=== PATIENT | female | born 1975 | race Caucasian/White ===

== ENCOUNTER 2018-01-23 13:22 | Emergency (ER) | payer OTHER ==
[2018-01-23 16:28] LABS: ABS Basophils 0 10^3/ul (0-0.2); ABS Eosinophils 0.2 10^3/ul (0-0.6); ABS Lymphocytes 1.4 10^3/ul (1.0-4.8); ABS Monocytes 0.5 10^3/ul (0-0.8); ABS Neutrophils 4.9 10^3/ul (1.5-7.7); ABS Nucleated RBC 0 10^3/ul; Eosinophil % 3.1 % (0-6); Hematocrit 38 % (35-47); Mean Corpuscular HGB Conc 34 g/dl (31-36); Mean Corpuscular Hemoglobin 29 pg (27-31); Mean Corpuscular Volume 86 fL (80-97); Mean Platelet Volume 7.9 um3 (7.4-10.4); Nucleated Red Blood Cells % 0; Platelet Count 161 10^3/ul (150-450); Red Blood Count 4.42 10^6/ul (4.00-5.40); Red Cell Distribution Width 14 % (10.5-15); White Blood Count 7.1 10^3/ul (3.5-10.8)
[2018-01-23 16:35] LABS: INR 1.03 (0.77-1.02)
[2018-01-23 16:44] LABS: EGFR Non-African American 73.7 (>60)
[2018-01-23 17:30] LABS: Urine Appearance Clear; Urine Blood Negative (Negative); Urine Color Yellow; Urine Ketones Negative (Negative); Urine Protein Negative (Negative); Urine Specific Gravity 1.014 (1.010-1.030); Urine Urobilinogen Negative (Negative)
[2018-01-23] MEDS ORDERED: Ketorolac INJ* 30 MG/ML 1 ML VIAL IV ONE (18:01)
[2018-01-23] MEDS ORDERED: NS 0.9% 1000 ML* 1,000 ML IV ONE (18:01)
--- NOTE | 2018-01-23 18:32 | RAD ---
INDICATION: Four-day history of vaginal bleeding and low back and abdominal pain. Hysterectomy 4 years ago. COMPARISON: No relevant prior exams available on the [facility] for comparison. TECHNIQUE: Multidetector CT images were obtained from the lung bases to the ischial tuberosities. Evaluation of the viscera is limited without IV contrast. Multiplanar reformation. REPORT: Unremarkable visualized inferior thorax. Unremarkable unenhanced liver, gallbladder, pancreas, and top normal 13 cm cephalocaudal spleen. Negative for CT abnormality of the upper GI or small bowel. Postsurgical change of appendectomy. A few colonic diverticula are noted. No evidence for acute diverticulitis. Physiologic range small volume of free fluid in the dependent pelvis. Negative for free air or hernias. Normal adrenal glands. 1 mm nonobstructing stone at the lower pole of the RIGHT kidney. Negative for hydronephrosis. Unremarkable nondilated ureters and partially distended urinary bladder. Pelvic phleboliths noted. Post hysterectomy. Small amount of gas noted in the vaginal cuff. Unremarkable adnexal regions. Negative for lymphadenopathy. Normal diameter abdominal aorta and iliac arteries. Physiologic distention of the IVC. Negative for suspicious osseous lesions. IMPRESSION: 1. Top normal size spleen. 2. Post appendectomy. A few colonic diverticula are noted. No evidence for acute diverticulitis. 3. 1 mm nonobstructing stone at the lower pole of the RIGHT kidney. Negative for hydronephrosis. 4. Post hysterectomy. No suspicious adnexal region lesions evident. Physiologic small volume of pelvic fluid.
--- NOTE | 2018-01-23 18:50 | ED ---
GI/ HPI - HPI Summary HPI Summary: Complains of either vaginal or urethral bleeding, right flank pain, X 4 days. Patient states bleeding is intermittent and involves bright red blood, both in bowl and on paper when wiping. Patient also states chronic lower back pain, chronic bilat lower abdominal pain, but lower abdominal pain is becoming worse in right lower quadrant x 4 days. History of recurrent UTIs, chronic urinary leakage since bladder mesh surgery 4 years ago. Patient has history of partial hysterectomy 4 years ago, appendectomy. Denies fever, cough, sore throat, CP, SOB, N/V/D, change in urine or BM. Medical history is hep C, asthma. - History of Current Complaint Chief Complaint: EDVaginalBleeding Time Seen by Provider: 01/23/18 16:51 Stated Complaint: VAGINAL BLEEDING Hx Obtained From: Patient Onset/Duration: Started Days Ago Timing: Intermittent Severity: Moderate Current Severity: Moderate Vaginal Bleeding Description: Bright Red Pain Intensity: 8 Location of Pain: RLQ, Flank Pain Characteristics: Cramping Pain Radiates to: Flank Associated Signs and Symptoms: Positive: Back Pain, Flank Pain, Abdominal Pain Additional Signs & Symptoms: Positive: Vaginal Bleeding Aggravating Factor(s): Movement - Allergy/Home Medications Allergies/Adverse Reactions: Allergies Allergy/AdvReac Type Severity Reaction Status Date / Time cefaclor [From Ceclor] Allergy Rash Verified 01/23/18 16:55 risperidone [From Risperdal] Allergy Anaphylatic Verified 01/23/18 16:55 Shock Sulfa (Sulfonamide Allergy Rash Verified 01/23/18 16:55 Antibiotics) tobramycin Allergy Bleeding Verified 01/23/18 16:55 Home Medications: Home Medications Albuterol HFA INHALER* [Ventolin HFA Inhaler*] 2 puff INH Q6H PRN 01/23/18 [ History Confirmed 01/23/18] Ibuprofen TAB* [Motrin TAB* 600 MG] 600 mg PO TID PRN 01/23/18 [History Confirmed 01/23/18] buPROPion TAB* [Wellbutrin TAB*] 150 mg PO QAM 01/23/18 [History Confirmed 01/23] hydrOXYzine HCL TAB* [Atarax TAB 50 MG *] 50 mg PO BID 01/23/18 [History Confirmed 01/23/18] PMH/Surg Hx/FS Hx/Imm Hx Endocrine/Hematology History: Denies: Hx Anticoagulant Therapy History: Denies: Hx Dialysis EENT History: Denies: Hx Deafness Neurological History: Denies: Hx CVA - Surgical History Surgery Procedure, Year, and Place: hysterectomy with bladder mesh Infectious Disease History: No Infectious Disease History: Denies: Traveled Outside the [place] in Last 30 Days - Social History Alcohol Use: None Substance Use Type: Reports: None Smoking Status (MU): Never Smoked Tobacco Review of Systems Constitutional: Negative Eyes: Negative ENT: Negative Cardiovascular: Negative Respiratory: Negative Positive: Abdominal Pain Positive: see HPI Musculoskeletal: Negative Skin: Negative Neurological: Negative Psychological: Normal All Other Systems Reviewed And Are Negative: Yes Physical Exam - Summary Physical Exam Summary: Abdomen diffusely tender, worse in bilateral lower abdomen and suprapubic area. Positive CVA tenderness right side. No bleeding noted on pelvic exam. Triage Information Reviewed: Yes Vital Signs On Initial Exam: Initial Vitals Temp Pulse Resp BP Pulse Ox 97.8 F 67 17 145/79 100 01/23/18 13:31 01/23/18 13:31 01/23/18 13:31 01/23/18 13:31 01/23/18 13:31 Vital Signs Reviewed: Yes Appearance: Positive: Well-Appearing Skin: Positive: Warm Head/Face: Positive: Normal Head/Face Inspection Eyes: Positive: Normal Neck: Positive: Supple Respiratory/Lung Sounds: Positive: Clear to Auscultation Cardiovascular: Positive: Normal Pelvic Exam: Positive: External Exam Normal, Speculum Exam Normal, Bimanual Exam Normal, Discharge, Other - no cervix. hx of partial hyst. Negative: No Cerv. Motion Tender, No Masses, Active Bleeding, Blood, Lesions, Mass, Tender w / Cervical Motion, Tender Adnexa Musculoskeletal: Positive: Normal Neurological: Positive: Normal Psychiatric: Positive: Normal AVPU Assessment: Alert - Cyndi Coma Scale Best Eye Response: 4 - Spontaneous Best Motor Response: 6 - Obeys Commands Best Verbal Response: 5 - Oriented Coma Scale Total: 15 Diagnostics - Vital Signs Vital Signs Temp Pulse Resp BP Pulse Ox 01/23/18 17:00 147/105 01/23/18 16:05 97 F 67 17 156/87 100 01/23/18 13:31 97.8 F 67 17 145/79 100 - Laboratory Lab Results: Lab Results 01/23/18 01/23/1818 Range/Units 16:10 16:10 16:10 WBC 7.1 (3.5-10.8) 10^3/ul RBC 4.42 (4.00-5.40) 10^6/ul Hgb 13.0 (12.0-16.0) g/dl Hct 38 (35-47) % MCV 86 (80-97) fL MCH 29 (27-31) pg MCHC 34 (31-36) g/dl RDW 14 (10.5-15) % Plt Count 161 (150-450) 10^3/ul MPV 7.9 (7.4-10.4) um3 Neut % (Auto) 69.9 (38-83) % Lymph % (Auto) 20.0 L (25-47) % [place] % (Auto) 6.4 (0-7) % Eos % (Auto) 3.1 (0-6) % Baso % (Auto) 0.6 (0-2) % Absolute Neuts (auto) 4.9 (1.5-7.7) 10^3/ul Absolute Lymphs (auto) 1.4 (1.0-4.8) 10^3/ul Absolute Monos (auto) 0.5 (0-0.8) 10^3/ul Absolute Eos (auto) 0.2 (0-0.6) 10^3/ul Absolute Basos (auto) 0 (0-0.2) 10^3/ul Absolute Nucleated RBC 0 10^3/ul Nucleated RBC % 0 INR (Anticoag Therapy) 1.03 H (0.77-1.02) APTT 29.8 (26.0-36.3) seconds Sodium 138 (135-145) mmol/L Potassium 4.4 (3.5-5.0) mmol/L Chloride 104 (101-111) mmol/L Carbon Dioxide 28 (22-32) mmol/L Anion Gap 6 (2-11) mmol/L BUN 12 (6-24) mg/dL Creatinine 0.84 (0.51-0.95) mg/dL Est GFR ( Amer) 89.1 (>60) Est GFR (Non-Af Amer) 73.7 (>60) BUN/Creatinine Ratio 14.3 (8-20) Glucose 96 (70-100) mg/dL Calcium 9.8 (8.6-10.3) mg/dL Total Bilirubin 0.40 (0.2-1.0) mg/dL AST 22 (13-39) U/L ALT 22 (7-52) U/L Alkaline Phosphatase 54 (34-104) U/L Total Protein 7.6 (6.4-8.9) g/dL Albumin 4.2 (3.2-5.2) g/dL Globulin 3.4 (2-4) g/dL Albumin/Globulin Ratio 1.2 (1-3) Urine Color Urine Appearance Urine pH (5-9) Ur Specific Sikes (1.010-1.030) Urine Protein (Negative) Urine Ketones (Negative) Urine Blood (Negative) Urine Nitrate (Negative) Urine Bilirubin (Negative) Urine Urobilinogen (Negative) Ur Leukocyte Esterase (Negative) Urine Glucose (Negative) 01/23/18 Range/Units 17:17 WBC (3.5-10.8) 10^3/ul RBC (4.00-5.40) 10^6/ul Hgb (12.0-16.0) g/dl Hct (35-47) % MCV (80-97) fL MCH (27-31) pg MCHC (31-36) g/dl RDW (10.5-15) % Plt Count (150-450) 10^3/ul MPV (7.4-10.4) um3 Neut % (Auto) (38-83) % Lymph % (Auto) (25-47) % [place] % (Auto) (0-7) % Eos % (Auto) (0-6) % Baso % (Auto) (0-2) % Absolute Neuts (auto) (1.5-7.7) 10^3/ul Absolute Lymphs (auto) (1.0-4.8) 10^3/ul Absolute Monos (auto) (0-0.8) 10^3/ul Absolute Eos (auto) (0-0.6) 10^3/ul Absolute Basos (auto) (0-0.2) 10^3/ul Absolute Nucleated RBC 10^3/ul Nucleated RBC % INR (Anticoag Therapy) (0.77-1.02) APTT (26.0-36.3) seconds Sodium (135-145) mmol/L Potassium (3.5-5.0) mmol/L Chloride (101-111) mmol/L Carbon Dioxide (22-32) mmol/L Anion Gap (2-11) mmol/L BUN (6-24) mg/dL Creatinine (0.51-0.95) mg/dL Est GFR ( Amer) (>60) Est GFR (Non-Af Amer) (>60) BUN/Creatinine Ratio (8-20) Glucose (70-100) mg/dL Calcium (8.6-10.3) mg/dL Total Bilirubin (0.2-1.0) mg/dL AST (13-39) U/L ALT (7-52) U/L Alkaline Phosphatase (34-104) U/L Total Protein (6.4-8.9) g/dL Albumin (3.2-5.2) g/dL Globulin (2-4) g/dL Albumin/Globulin Ratio (1-3) Urine Color Yellow Urine Appearance Clear Urine pH 5.0 (5-9) Ur Specific Sikes 1.014 (1.010-1.030) Urine Protein Negative (Negative) Urine Ketones Negative (Negative) Urine Blood Negative (Negative) Urine Nitrate Negative (Negative) Urine Bilirubin Negative (Negative) Urine Urobilinogen Negative (Negative) Ur Leukocyte Esterase Negative (Negative) Urine Glucose Negative (Negative) Result Diagrams: 01/23/18 16:10 01/23/18 16:10 Lab Statement: Any lab studies that have been ordered have been reviewed, and results considered in the medical decision making process. - CT ab/pel w/o CT Interpretation: No Acute Changes CT Interpretation Completed By: Radiologist GIGU Course/Dx - Course Course Of Treatment: Complains of either vaginal or urethral bleeding, right flank pain, X 4 days. Patient states bleeding is intermittent and involves bright red blood, both in bowl and on paper when wiping. Patient also states chronic lower back pain, chronic bilat lower abdominal pain, but lower abdominal pain is becoming worse in right lower quadrant x 4 days. History of recurrent UTIs, chronic urinary leakage since bladder mesh surgery 4 years ago. Patient has history of partial hysterectomy 4 years ago, appendectomy. Denies fever, cough, sore throat, CP, SOB, N/V/D, change in urine or BM. Medical history is hep C, asthma. Abdomen diffusely tender, worse in bilateral lower abdomen and suprapubic area. Positive CVA tenderness right side. No bleeding noted on pelvic exam. Positive D/C. Vital signs within normal limits and stable. Labs unremarkable. Imaging unremarkable. Discharge with recommended follow-up with urology and [facility]. - Diagnoses Provider Diagnoses: Abdominal pain, Right flank pain Discharge - Sign-Out/Discharge Documenting (check all that apply): Discharge/Admit/Transfer - Discharge Plan Condition: Stable Disposition: HOME Patient Education Materials: Abdominal Pain (ED), Flank Pain (ED) Referrals: No Primary Care Phys,NOPCP [Primary Care Provider] - Additional Instructions: Follow-up with primary care and possible further evaluation with urology and/or [facility]. If swab results are positive for infection you will be informed in 2 days. Return to the ED for any new or worsening symptoms - Billing Disposition and Condition Condition: STABLE Disposition: Home
[2018-01-23 21:19] VITALS: BP 121/99
--- NOTE | 2018-01-25 06:40 | PN ---
Progress Note - Progress Note Date of Service: 01/25/18 Note: patient vaginal culture grew Gard[place]. per noted had vaginal discharge so will need treat with flagyl 500mg bid x7 days. no pharmacy on file. [facility] and they took a verbal for an order.
== END 2018-01-23 21:18 | disposition home or self-care (01) ==
LOC: ED 13:22
DX: R10.31 Right lower quadrant pain (principal); R10.32 Left lower quadrant pain; N89.8 Other specified noninflammatory disorders of vagina; K57.30 Diverticulosis of large intestine without perforation or abscess without bleeding; N20.0 Calculus of kidney; M54.5 Low back pain; G89.29 Other chronic pain; B19.20 Unspecified viral hepatitis C without hepatic coma; J45.909 Unspecified asthma, uncomplicated; Z87.440 Personal history of urinary (tract) infections; Z90.79 Acquired absence of other genital organ(s); Z88.2 Allergy status to sulfonamides; Z88.8 Allergy status to other drugs, medicaments and biological substances; Z88.3 Allergy status to other anti-infective agents
CPT/HCPCS: 36415; 74176; 80053; 81003; 85025; 85610; 85730; 87480; 87491; 87510; 87591; 87661; 96361; 96374; 99282; J1885